=== PATIENT | female | born 1975 | race Asian ===

== ENCOUNTER 2021-01-13 11:37 | Outpatient (CLI) | payer BC | END 2021-01-13 23:59 | disposition home or self-care (01) | LOC: LAB 11:37 | PROVIDERS: ATTEND Family Medicine | DX: E04.1 Nontoxic single thyroid nodule (principal) | CPT/HCPCS: 36415; 86376; 86800 ==

== ENCOUNTER 2021-03-10 11:08 | Outpatient (CLI) | payer BC | END 2021-03-10 23:59 | disposition home or self-care (01) | LOC: US 11:08 | PROVIDERS: ATTEND Family Medicine | DX: N85.2 Hypertrophy of uterus (principal) | CPT/HCPCS: 76856-TC ==